=== PATIENT | female | born 1990 | race Caucasian/White ===

== ENCOUNTER 2024-11-13 13:31 | Emergency (ER) | payer OTHER, SELFPAY ==
[2024-11-13 13:34] VITALS: BP 169/107
[2024-11-13 15:25] VITALS: BP 162/96
[2024-11-13 15:26] VITALS: BMI 41.3
--- NOTE | 2024-11-13 15:37 | ED.GENMED ---
History of Present Illness
General
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
Time Seen by Provider: 11/13/24 15:01
History of Present Illness
History of Present Illness:
34-year-old female presenting with vaginal laceration. Patient states that she was using a dildo last night around 630pm when she started having pain and bleeding from her vagina. Patient states that there is a piece of tissue that is hanging off.
Tetanus up-to-date. Patient denies being on blood thinners. LMP 1 month ago.
Past History
Past History
ED Past Medical History: Psychiatric (Depression) and Other (Irritable bowel, Headaches, Renal calculus, )
ED Past Surgical History: None and Orthopedic (Left Wrist repair)
Social History
Tobacco: Non-smoker
Alcohol: Occasional
Personal: Single
Living: with family
Phy Exam
Physical Exam
Physical Exam:
General: Alert, no acute distress
Head: NCAT
Eyes: clear conjunctiva
Neck: supple
Cardiac: regular rate and rhythm, no murmur
Lungs: clear to auscultation bilaterally. No wheezes, rales, or rhonchi. Speaking full unlabored sentences. No respiratory distress.
Abdomen: soft, nondistended nontender. No rebound or guarding.
: tissue avulsed from right labia minora, still intact at inferior end. no active bleeding. no discharge. mild tenderness to palpation
MSK: no lower extremity edema bilaterally. No deformity
Skin: warm, dry
Neuro: Alert and oriented x3. no focal deficits
Course
Vital Signs
Initial and Last Documented VS:
Initial Vital Signs
Temp Pulse Resp BP Pulse Ox
97.6 F 89 22 169/107 98
11/13/24 13:34 11/13/24 13:34 11/13/24 13:34 11/13/24 13:34 11/13/24 13:34
Last Documented Vital Signs
Temp Pulse Resp BP Pulse Ox
97.6 F 89 22 162/96 100
11/13/24 13:34 11/13/24 13:34 11/13/24 13:34 11/13/24 15:25 11/13/24 15:27
Procedures
Laceration Closure
Right Vagina:
Status of Wound: clean
Size of Wound in cm: 1
Description of Wound Edges: flap-poorly vascularized
Preparation: cleaned with Betadine
Anesthesia: 1% Lidocaine
Revision/Debridement: minor revision
Additional information:
Cut off flap, held pressure to control bleeding.
MDM/Problems Addressed
MDM/Problems Addressed:
Given sustained laceration nearly 24hrs ago, discussed healing via secondary intention vs laceration repair. Pt requesting avulsed tissue to be removed and not attempt suturing avulsed tissue down. Numbed area with lidocaine 1% w/o epi, cut flap,
applied pressure. On reevaluation, no active bleeding. Pt states she has a follow up appointment with [facility] on Saturday 11/18. Stable for discharge
*Critical Care Note
Total Time (30-74mins, 75-104mins- exclusive of procedures): Not Applicable
ED Attending Note
-
Portions of this chart may have been created with voice recognition software.� Occasional wrong word or��sound alike� substitutions may have occurred due to the inherent limitations of voice recognition software.
Discharge Plan
Departure
Patient Disposition: Home (Routine Discharge)
Date of Disposition: 11/13/24
Time of Disposition: 16:24
Patient with high blood pressure during this ER visit?: Yes
Discharge Problem:
Vaginal laceration
Prescriptions:
No Action
tamsulosin [Flomax] 0.4 MG capsule
0.4 mg PO DAILY Qty: 5 0RF
oxycodone-acetaminophen 5 MG/325 MG tablet
1 tab PO Q4HPRN PRN (Reason: pain) Qty: 10 0RF
sucralfate 1 GRAM tablet
1 g PO QID Qty: 40 2RF
ondansetron [Zofran ODT] 8 MG tablet,disintegrating
8 mg PO TID PRN (Reason: nausea/vomiting) Qty: 20 0RF
pantoprazole 40 MG tablet,delayed release (DR/EC)
40 mg PO BID Qty: 20 0RF
pantoprazole [Protonix] 40 mg tablet,delayed release (DR/EC)
40 mg PO DAILY Qty: 30 0RF
Referrals:
Ricky Grover, DO [Family Provider] -
Activity Restrictions/Additional Instructions:
Take Tylenol 975mg every 6 hours and/or Ibuprofen 800mg every 8 hours with food as needed for pain
Follow up with [facility] next week as scheduled
No sexual intercourse for 2 weeks
Return to the emergency department for new/worsening symptoms
Interventions
Interventions:
*Risk Screen - Suicide Last Done: 11/13/24 13:34
*General Assessment Last Done: 11/13/24 13:34
*Neglect/Abuse Screening Last Done: 11/13/24 13:34
ED- Fall Risk Assessment Last Done: 11/13/24 15:27
*ED COVID-19 Vaccine History Last Done: 11/13/24 15:27
ED-Female Genitourinary Assessment Last Done: 11/13/24 15:27
Discharge Date and Time
Print Language: EMIRATI
== END 2024-11-13 16:55 | disposition home or self-care (01) ==
LOC: EMR 13:31
PROVIDERS: EMERGENCY PHYSICIAN Emergency Medicine; FAMILY PHYSICIAN Family Medicine; REFERRING PHYSICIAN Obstetrics & Gynecology
DX: S31.41XA Laceration without foreign body of vagina and vulva, initial encounter (principal); W45.8XXA Other foreign body or object entering through skin, initial encounter
CPT/HCPCS: 17999; 99282